=== PATIENT | male | born 1985 | race Caucasian/White ===

== ENCOUNTER 2018-10-23 16:22 | Outpatient (REF) | payer OTHER, SELFPAY ==
--- NOTE | 2018-10-23 15:50 | ORMUBX_PTH ---
PATIENT: PANDA ELIAS LOC: [facility] U#:[id number] AGE/SX: 33/M ROOM: RE10/23/[address]: Fernando Encarnacion DO : 1985 BED: DIS: 10/23/2018 SPEC #: [id number] RECD: 10/23/18 18:16 STATUS: TITO REQ #: [id number] COBY: 10/23/18 15:[address]: Fernando Encarnacion DEPT: Surgical Specimen RECD BY: Jazlyn Queen ENTERED: 10/23/18 18:16 SP TYPE: ORMUBX OT DR: No Local Tissues: 1 - MUCOSA, NOS Procedures: GROSS AND MICRO LEVEL 4 Comments: [id number]
== END 2018-10-23 16:42 ==
LOC: LBN 16:22
PROVIDERS: Visit Provider Otolaryngology Otolaryngology/Facial Plastic Surgery
DX: D10.39 Benign neoplasm of other parts of mouth (principal)
CPT/HCPCS: 88305